=== PATIENT | female | born 1955 | race Two or more races ===

== ENCOUNTER 2022-07-16 17:49 | Emergency (ER) | payer MEDICARE, MEDICAID ==
[~2022-07-16] VITALS: Ht 160 cm; Wt 82.0 kg
[2022-07-16] MEDS ORDERED: KETOROLAC 60MG/2ML VIAL IM ONE (21:45)
[2022-07-16 21:54] VITALS: BP 149/81
== END 2022-07-16 22:05 | disposition home or self-care (01) ==
LOC: ER 19:54
DX: M17.9 Osteoarthritis of knee, unspecified (principal); E11.9 Type 2 diabetes mellitus without complications
CPT/HCPCS: 73560; 96372; 99283; J1885

== ENCOUNTER 2023-06-07 09:34 | Emergency (ER) | payer MEDICARE, MEDICAID ==
[~2023-06-07] VITALS: Ht 165.1 cm; Wt 77.6 kg
[2023-06-07] MEDS ORDERED: DEXTROSE 50% WATER 50ML SYRINGE IV ONE (09:45)
[2023-06-07 10:05] VITALS: BP 153/82; PULSE 89; RESP 14
== END 2023-06-07 10:43 | disposition home or self-care (01) ==
LOC: ER 09:49
DX: E16.2 Hypoglycemia, unspecified (principal); R41.82 Altered mental status, unspecified; R47.81 Slurred speech; E11.9 Type 2 diabetes mellitus without complications
CPT/HCPCS: 99285; 70496; 71045; 82962; 70498; 93005; 70450; Q9967